=== PATIENT | male | born 1975 | race Caucasian/White ===

== ENCOUNTER 2019-05-12 15:31 | Observation (INO) ==
[2019-05-12] MEDS ORDERED: *HR* FentaNYL (PF) 100 MCG/2 ML VIAL IVP ONE (16:01)
[2019-05-12] MEDS ORDERED: 0.9 % Sodium Chloride 1,000 ML IVC SCH (16:15)
[2019-05-12] MEDS: *HR* FentaNYL (PF) 100 MCG/2 ML VIAL IVP ONE ×5 (16:42→19:51)
[2019-05-12 16:45] LABS: Basophils # 0.1 K/mcL (0.0-0.2); Basophils % 0.3 %; Hematocrit 43.5 % (37.5-50.1); Hemoglobin 15.4 g/dL (12.9-16.9); Immature Granulocytes % 0.7 % (0-4); Lymphocytes # 0.8 K/mcL (0.6-4.6); Lymphocytes % 2.9 %; Mean Corpuscular HGB Conc 35.4 g/dL (31.6-35.5); Mean Corpuscular Hemoglobin 30.3 pg (28.0-33.3); Mean Corpuscular Volume 85.6 fL (83.0-100.0); Mean Platelet Volume 9.5 fL (9.4-12.4); Monocytes # 1.9 K/mcL (0.0-1.3); Monocytes % 6.6 %; Neutrophils # 25.6 K/mcL (1.6-8.9); Platelet Count 373 K/mcL (140-400); Red Blood Count 5.08 M/mcL (4.19-5.50); Red Cell Distribution Width 11.9 % (11.5-14.5); Segmented Neutrophils % 89.5 %; White Blood Count 28.6 K/mcL (4.3-11.1)
[2019-05-12 16:55] LABS: BUN/Creatinine Ratio 9 (6-26); Blood Urea Nitrogen 13 mg/dL (6-20); Calcium 10.3 mg/dL (8.6-10.3); Carbon Dioxide 22 mEq/L (23-29); Chloride 102 mEq/L (98-107); Glucose 114 mg/dL (70-105); Osmolality,Calculated 283 (280-300); Potassium 3.8 mEq/L (3.5-5.1); Sodium 136 mEq/L (136-145); eGFR For African Americans > 60 (> 60); eGFR For Non-African Americans 56 (> 60)
[2019-05-12 17:07] LABS: Platelet Estimate Normal (Normal)
[2019-05-12 17:37] LABS: Prothrombin Time 11.8 Seconds (9.4-12.1)
[2019-05-12 17:39] LABS: Activated Partial Thrombo Time 27.1 Seconds (26.0-36.0)
[2019-05-12] MEDS ORDERED: *HR* HYDROmorphone (PF) 1 MG/ML SYRINGE IVP ONE (18:00)
[2019-05-12] MEDS ORDERED: *HR* FentaNYL (PF) 100 MCG/2 ML VIAL ONE ×2 (18:59→19:46)
[2019-05-12] MEDS ORDERED: *HR* Midazolam HCl 5 MG/5 ML VIAL IVP ONE ×2 (18:59→19:46)
[2019-05-12] MEDS: *HR* Midazolam HCl 5 MG/5 ML VIAL IVP ONE ×5 (19:18→19:51)
[2019-05-12] MEDS ORDERED: 0.9 % Sodium Chloride 500 ML IVC SCH (19:50)
[2019-05-12] MEDS ORDERED: Nicotine 21 MG PATCH.TD24 TD ONE (22:16)
[2019-05-12 23:20] VITALS: BP 137/78
== END 2019-05-13 01:40 | disposition left against medical advice (07) ==
LOC: EMEROOARM 15:31 → 3ANU 15:31
PROVIDERS: ADMIT Surgery; ATTEND Surgery
PROC: ENDOCFB (2019-05-12 19:00)